=== PATIENT | female | born 1985 | race Caucasian/White ===

== ENCOUNTER 2016-10-21 01:39 | Emergency (ER) | payer OTHER ==
--- NOTE | 2016-10-21 02:06 | PROVIDER DOCUMENTATION ---
HPI-General Adult <JaydenAlec BarbaraJake - Last Filed: 10/21/16 02:07> - General Source: patient - History of Present Illness -Gen Adult Nature of Presenting Problems: 31 year old F presents to the ED with a cc of a hypomanic episode. PT states that these usually get worse in the spring. PT states that she has not slept in 2 days and having racing thought. Pt states that she has taken Klonopin and Ambien with no relief. PT states that she would like some relief tonight and will follow up with Dr. Sung today. Location of Pain/Injury: reports: none Pain Radiation: reports: no radiation Quality of Pain: reports: none Severity: reports: mild Onset/Duration: reports: 2 days ago Timing: reports: still present Modifying Factors: improves with: nothing Associated Symptoms: reports: anxiety Similar Symptoms Previously?: Yes Recently seen or treated by another doctor?: No <Sonya Hart - Last Filed: 10/21/16 02:16> - General Chief Complaint: Anxiety Stated Complaint: HYPOMANIC EPISODE Time Seen by Provider: 10/21/16 01:49 Allergies/Adverse Reactions: Patient Allergies Allergy/AdvReac Type Severity Reaction Status Date / Time cefprozil [From Cefzil] Allergy Mild RASH Verified 11/27/14 13:51 levofloxacin [From Levaquin] Allergy Mild RASH Verified 11/27/14 13:51 ketorolac tromethamine * Allergy SHORTNESS Verified 11/27/14 13:51 [From Toradol] OF BREATH Sulfa (Sulfonamide Allergy RASH Verified 11/27/14 13:51 Antibiotics) Home Medications: Home Medication List Medication Instructions Recorded Confirmed Last Taken Type Norethindrone AC-Eth Estradiol 1 each PO QHS 08/02/14 10/21/16 10/18/14 History [Gildess 1.5 mg-30 Mcg Tablet] Nebivolol HCl [Bystolic] 20 mg PO DAILY 11/27/14 10/21/16 Unknown History Buprenorphine HCl/Naloxone HCl 1 applicatn TOP DAILY 10/21/16 10/21/16 Unknown History [Suboxone 8 mg/2 mg Sl Film] Calcium Carbonate/Vit D3 [Caltrate 1 tab PO DAILY 10/21/16 10/21/16 Unknown History 600 + D] Clonazepam 2 mg PO PRN PRN 10/21/16 10/21/16 10/20/16 History 2030 Multivitamin [Multi-Day Vitamins] 1 tab PO DAILY 10/21/16 10/21/16 Unknown History Review of Systems - Adult - REVIEW OF SYSTEMS - ADULT Constitutional: denies: chills, fever Eyes: reports: no symptoms reported Ears, Nose, Mouth & Throat: reports: no symptoms reported Cardiovascular: denies: chest pain, palpitations Respiratory: denies: cough, shortness of breath Gastrointestinal: denies: nausea, vomiting Genitourinary: reports: no symptoms reported Musculoskeletal: reports: no symptoms reported Integumentary: reports: no symptoms reported Neurological: reports: no symptoms reported Psychiatric: reports: anxiety. denies: suicidal thoughts Endocrine: reports: no symptoms reported Hematologic/Lymphatic: reports: no symptoms reported Allergic/Immunologic: reports: no symptoms reported All Other Systems: Reviewed and Negative <Sonya Hart - Last Filed: 10/21/16 02:16> Past History - Adult - PAST MEDICAL HISTORY-ADULT Review of Records: reports: Nursing Assessment Review, Medications Reviewed Major Childhood Illnesses: reports: denies history Cardiovascular: reports: HTN, heart valve problem (MVP) Respiratory: reports: denies history Gastrointestinal: reports: colitis Obstetrical/Gynecological: reports: denies history Genitourinary: reports: kidney disease Musculoskeletal: reports: denies history Neurological: reports: denies history Psychiatric: reports: depression 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) Other Conditions: reports: denies history - PRIOR SURGERIES/PROCEDURES Surgical/Procedure History: reports: appendectomy, tonsillectomy, other (Scar tissue removal from abdomen) - IMMUNIZATION STATUS Childhood Immunizations: See Nurse Assessment Flu Vaccine: See Nurse Assessment - FAMILY HISTORY Family History: reviewed, not pertinent - SOCIAL HISTORY Smoking: non-smoker Substance Use: none/never Alcohol Use Frequency: never <Sonya Hart - Last Filed: 10/21/16 02:16> Physical Exam-General - PHYSICAL EXAM-ADULT Initial Vital Signs Reviewed: Yes - CONSTITUTIONAL General Appearance: alert, anxious - RESPIRATORY Respiratory: chest non-tender, lungs clear, normal breath sounds - CARDIOVASCULAR Cardiovascular: normal peripheral pulses, regular rate, rhythm, no edema - GASTROINTESTINAL (ABDOMEN) Abdominal Exam: non tender, soft - SKIN Integumentary: normal color, normal turgor, warm/dry - PSYCHIATRIC Psych/Mental Status: anxious <Sonya Hart - Last Filed: 10/21/16 02:16> Progress - PLAN OF CARE/RESULTS Progress/Plan/Lab Results: Orders Category Date Time Status Lorazepam [Ativan] Med 10/21/16 02:07 Discontinued 2 mg IM NOW ONE Vital Signs - 24 hr 10/21/16 01:42 Temperature 98.2 F Pulse Rate 89 Respiratory 18 Rate Blood Pressure 148/79 O2 Sat by Pulse 100 Oximetry Pt given results and will be d/c home w/o rx to follow up with PCP. Pt verbally understood instructions. PT remained clinically stable throughout the course of the ED stay and will return if symptoms worsen. <Sonya Hart - Last Filed: 10/21/16 02:16> Departure - Departure Time of Disposition Order: 02:07 Certified Medical Emergency: Emergent <Alec Carpenter - Last Filed: 10/21/16 02:07> <Sonya Hart - Last Filed: 10/21/16 02:16> - Departure DIAGNOSIS: Hypomania Disposition: HOME 01 Condition: Good Additional Instructions: follow up with Dr Pineda negro today ED Follow Up Instructions: You have been treated by a care provider in the Emergency Department. These instructions are being provided to you so you can have an understanding of how to care for yourself upon discharge. Upon discharge from the Emergency Department, you are responsible for making arrangements for follow-up care by a physician of your choice. Take all prescribed medications as directed. Return to the Emergency Department immediately for any new or worsening symptoms. You may call the Physician Referral phone number at [phone] to obtain a list of Physicians who are taking new patients. Referrals: None,PCP [Primary Care Provider] - Attestation - Scribe Verification/Attestation Scribe:: Sonya Hart Acting as Scribe for:: Alec Carpenter Scribe documention review:: This chart was documented by a scribe and accurately reflects the service the provider performed and the decisions made by the provider. <Sonya Hart - Last Filed: 10/21/16 02:16> Physician Attestation - Physician Attestation I, the provider, attest to the following statement:: Alec Carpenter Physician documentation Attestation:: This documentation recorded by the scribe accurately reflects the service I personally performed and the decisions made by me. <Sonya Hart - Last Filed: 10/21/16 02:16>
[2016-10-21] MEDS ORDERED: ATIVAN IM ONE (02:07)
[2016-10-21 03:25] VITALS: BP 139/87
== END 2016-10-21 03:24 | disposition home or self-care (01) ==
LOC: P.ED 01:39
DX: F30.8 Other manic episodes (principal); I10 Essential (primary) hypertension; I34.1 Nonrheumatic mitral (valve) prolapse; F32.9 Major depressive disorder, single episode, unspecified; Q79.6 Ehlers-Danlos syndromes; Z79.899 Other long term (current) drug therapy
CPT/HCPCS: 96372; J2060